=== PATIENT | female | born 1970 | race Caucasian/White ===

== ENCOUNTER 2020-02-18 07:43 | Day surgery (SDC) | payer MEDICARE, MEDICAID ==
[~2020-02-18 07:43] MED LIST: Sodium Chloride 0.9% 10 ML Syringe FLUSH PRN
[2020-02-18] MEDS ORDERED: Lidocaine 1% 30 ML SDV INJECT ONE ×3 (07:44→10:50)
[2020-02-18] MEDS ORDERED: Bupivacaine 0.5% 30 ML SDV INJECT ONE ×3 (07:44→10:50)
[2020-02-18] MEDS ORDERED: fentaNYL 100 MCG/2 ML SDV IV ONE (07:44)
[2020-02-18] MEDS ORDERED: Midazolam 1 MG/ML 2 ML SDV IV ONE (07:44)
[2020-02-18] MEDS ORDERED: Propofol 200 MG/20 ML SDV IV ONE (07:44)
[2020-02-18] MEDS ORDERED: Sodium Chloride 0.9% 10 ML Syringe FLUSH PRN (08:00)
[2020-02-18] MEDS ORDERED: Lactated Ringers 1,000 ML IV SCH (08:00)
[2020-02-18] MEDS ORDERED: ceFAZolin 2 GM in Premix Bag 1 BAG IV ONE (08:00)
[2020-02-18] MEDS ORDERED: Lidocaine 1% 30 ML SDV ONE (09:23)
[2020-02-18] MEDS ORDERED: Bupivacaine 0.5% 30 ML SDV ONE (09:23)
[2020-02-18] MEDS ORDERED: Lactated Ringers 1,000 ML IV ONE (10:00)
[2020-02-18] MEDS ORDERED: Ondansetron 4 MG/2 ML SDV IV ONE (11:00)
[2020-02-18] MEDS ORDERED: Acetaminophen/oxyCODONE 325-5 MG Tab PO PRN (11:38)
--- NOTE | 2020-02-18 11:42 | PCM.OPNOTE ---
- General Post-Op/Procedure Note Date of Surgery/Procedure: 02/18/20 Operative Procedure(s): left foot 5th metatarsal osteotomy Pre Op Diagnosis: left foot painful 5th metatarsal bunion with plantar callus Post-Op Diagnosis: william Anesthesia Technique: Local, MAC Primary Surgeon: Leonela Aquino Anesthesia Provider: Benjie Sawyer EBL in mLs: 5 Complications: none Condition: Good Free Text/Narrative:: pt tolerated procedure well and was transported to recovery with vascular status intact to left foot. ata 2.0 cannulated screws placed at 5th metatarsal. Well padded compression dressing applied.
--- NOTE | 2020-02-19 17:16 | OR ---
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 PROCEDURE PERFORMED: Left foot 5th metatarsal osteotomy/bunionectomy with hardware fixation. ANESTHESIA: Local MAC with preoperative block of 10 mL 1:1 mixture of 1% lidocaine plain and 0.5% Marcaine plain. TOURNIQUET TIME: 52 minutes pneumatic ankle tourniquet. ESTIMATED BLOOD LOSS: Minimal. SPECIMEN: None. COMPLICATIONS: None. INDICATIONS: Zhanna is a 49-year-old female, who presents with painful left foot callus under her little toe. This has been present for years now and gradually worsening. She has seen Podiatry in the past, but that was several years ago also. She does try to trim down the callus, but it grows back quickly. She really is not able to tolerate an insert in her shoe. She was told by a road inspector several years ago that she will need surgery on that foot, but never did go through with that. On x-rays of the left foot, she has a mild tailor's bunion with 4-5 intermetatarsal angle of 7.1 degrees, there is a plantar lateral bowing of the 5th metatarsal with a bone spur present to that plantar lateral 5th metatarsal head. The patient voiced good understanding of the proposed procedure and possible complications and elects to have surgery at this time. DESCRIPTION OF PROCEDURE: The patient was taken to the operating room, ricky in the supine position. After adequate anesthesia induction as described above, the left foot was prepped and draped in the usual sterile fashion. Pneumatic ankle tourniquet was inflated to 225 mmHg. Attention was then directed to the dorsal aspect of the 5th metatarsophalangeal joint where an approximately 4 cm linear incision was made overlying the distal 5th metatarsal. Sharp and blunt dissection were performed down to the level of the 5th MTPJ and distal 5th metatarsal. A capsulotomy was made and the 5th metatarsal head was exposed. Care was taken to gently retract all neurovascular structures. There was noted to be plantar bowing of the 5th metatarsal as well as a prominent bone spur at this area of pressure and also the metatarsal head was noted to be rotated plantarly. A sagittal saw was used to remove the bone spur at the lateral 5th metatarsal head. The sagittal saw was then used to make a chevron bone cut at the 5th metatarsal, angulated in a way that it would cause dorsal displacement of the 5th metatarsal head. The capital fragment was then moved medially approximately 4 mm and impacted on the 5th metatarsal to bring the 5th MTPJ in a good rectus alignment. Temporary fixation K-wires from the screw set was used and fluoroscopy was then used to verify proper reduction of the deformity as well as proper screw fixation. Two Eben cannulated 2.0 screws were then placed at the osteotomy site. It was noted to be stable with varus, valgus, and axial force applied after the temporary fixation was removed. Fluoroscopy was then again used to verify proper screw placement. The lateral cortical shelf was removed with a sagittal saw. A bone rasp was used to rasp any remaining prominent areas plantarly and laterally. The 5th MTPJ was noted to be in good rectus alignment and at the 5th digit. The area was then irrigated with copious amounts of sterile saline. Deep closure was completed with 3-0 Vicryl and skin closure was completed with 4-0 nylon. The area was dressed with Xeroform to the incision sites, fluffs, Webril, and a well-padded compression dressing. The patient tolerated anesthesia and procedure well, and was transported to recovery with vital signs stable and vascular status intact as noted by the immediate hyperemia to all digits upon deflation of the ankle tourniquet. She was then discharged home when she met hospital discharge requirement. [facility] /[id number]
== END 2020-02-18 12:12 | disposition home or self-care (01) ==
LOC: DL.SDS 07:43
PROVIDERS: ATTEND Podiatrist
DX: M21.622 Bunionette of left foot (principal); L84 Corns and callosities; M25.775 Osteophyte, left foot; K21.9 Gastro-esophageal reflux disease without esophagitis; F32.9 Major depressive disorder, single episode, unspecified; F17.210 Nicotine dependence, cigarettes, uncomplicated; G93.2 Benign intracranial hypertension; J44.9 Chronic obstructive pulmonary disease, unspecified; Z88.1 Allergy status to other antibiotic agents; Z88.8 Allergy status to other drugs, medicaments and biological substances; Z91.012 Allergy to eggs; Z79.899 Other long term (current) drug therapy
CPT/HCPCS: 28110; C1713; J0690; J2001; J2250; J2405; J2704; J3010; J3490; J7120; 01480